=== PATIENT | male | born 1965 | race Caucasian/White ===

== ENCOUNTER 2020-08-08 09:54 | Outpatient (CLI) | payer BC ==
--- NOTE | 2020-08-08 10:21 | RAD ---
EXAM: Cervical spine 3 views: HISTORY: Cervical radiculopathy COMPARISON: 06/23/2020 FINDINGS: Anterior cervical fusion changes at C5-C6 with intradiscal prosthesis. No evidence for acute fracture or dislocation or significant acute osseous process. Alignment:No significant malalignment. Discs: Evidence for disc osteophytosis and changes of spondylosis. No evidence for a focal bone lesion. IMPRESSION: Postop cervical fusion. Stable
== END 2020-08-08 09:55 | disposition home or self-care (01) ==
LOC: NAV RAD 09:54
PROVIDERS: ATTEND Neurological Surgery
DX: M54.12 Radiculopathy, cervical region (principal); Z98.1 Arthrodesis status
CPT/HCPCS: 72040